=== PATIENT | female | born 1950 | race Caucasian/White ===

== ENCOUNTER 2020-06-26 09:23 | Outpatient (CLI) | payer BC, OTHER, SELFPAY ==
--- NOTE | ~2020-06-26 | MM_ITS ---
EXAMINATION: MM screening ruby BI w harry HISTORY: Screening mammogram TECHNIQUE: Craniocaudal and mediolateral oblique 3-D tomosynthesis images were obtained and synthetic 2-D images were generated. CAD analysis was submitted and interpreted. COMPARISON: 06/18/2019, 05/04/2018, 12/08/2016 bilateral digital screening mammogram examinations BREAST PARENCHYMAL COMPOSITION: There are scattered areas of fibroglandular density. FINDINGS: There are scattered bilateral benign calcifications. There is no evidence of suspicious mas s, calcification, or architectural distortion to suggest malignancy in either breast. There has been no suspicious interval change. IMPRESSION: 1. No mammographic evidence of malignancy. 2. Recommend routine screening mammography in one year. BI-RADS Category 2: Benign finding(s). Reviewed, dictated and finalized at location B. ERCIAL LITIGATION ASSOCIATE
== END 2020-06-26 09:24 | disposition home or self-care (01) ==
PROVIDERS: PCP Internal Medicine; Visit Provider Student in an Organized Health Care Education/Training Program
DX: Z12.31 Encounter for screening mammogram for malignant neoplasm of breast (principal)
CPT/HCPCS: 77063; 77067

== ENCOUNTER 2021-08-05 09:07 | Outpatient (CLI) | payer BC, OTHER, SELFPAY ==
--- NOTE | ~2021-08-05 | MM_ITS ---
EXAMINATION: MM screening [facility] BI w harry HISTORY: Screening mammogram TECHNIQUE: Craniocaudal and mediolateral oblique 3-D tomosynthesis images were obtained and synthetic 2-D images were generated. CAD analysis was submitted and interpreted. COMPARISON: 06/26/2020, 06/28/2019, 05/04/2018 BREAST PARENCHYMAL COMPOSITION: There are scattered areas of fibroglandular density. FINDINGS: Scattered benign-appearing calcifications are present. There is no evidence of suspicious m ass, calcification, or architectural distortion to suggest malignancy in either breast. There has bee n no suspicious interval change. IMPRESSION: 1. No mammographic evidence of malignancy. 2. Recommend routine screening mammography in one year. BI-RADS Category 2: Benign finding(s). Reviewed, dictated and finalized at location A. ITAL INSURANCE CLERK
== END 2021-08-05 09:08 | disposition home or self-care (01) ==
LOC: ANHIMG 09:11
PROVIDERS: PCP Internal Medicine; Visit Provider Student in an Organized Health Care Education/Training Program
DX: Z12.31 Encounter for screening mammogram for malignant neoplasm of breast (principal)
CPT/HCPCS: 77063; 77067

== ENCOUNTER 2022-08-11 11:29 | Outpatient (CLI) | payer BC, OTHER, SELFPAY ==
--- NOTE | ~2022-08-11 | MM_ITS ---
EXAMINATION: MM screening ruby BI w harry HISTORY: Screening TECHNIQUE: Craniocaudal and mediolateral oblique 3-D tomosynthesis images were obtained and synthetic 2-D images were generated. CAD analysis was submitted and interpreted. COMPARISON: Comparison to multiple prior studies sequentially, with oldest reviewed study dated 11/30. BREAST PARENCHYMAL COMPOSITION: Breast composed of scattered areas of fibroglandular density FINDINGS: There is no evidence of suspicious mass, calcification, or architectural distortion to sugg est malignancy in either breast. There has been no suspicious interval change. IMPRESSION: 1. No mammographic evidence of malignancy. 2. Recommend routine screening mammography in one year. BI-RADS Category 1: Negative Reviewed, dictated and finalized at location A. P MACHINE SERVICER
== END 2022-08-11 11:30 | disposition home or self-care (01) ==
PROVIDERS: PCP Registered Nurse; Visit Provider Internal Medicine
DX: Z12.31 Encounter for screening mammogram for malignant neoplasm of breast (principal)
CPT/HCPCS: 77063; 77067

== ENCOUNTER 2023-02-23 01:44 | Day surgery (SDC) | payer BC, OTHER, SELFPAY ==
[2023-02-09 13:15] VITALS: BMI 32.3
[2023-02-23 06:21] VITALS: BP 157/73; PULSE 63; RESP 20; TEMP 35.9; O2SAT 99
[2023-02-23] MEDS: LACTATED RINGERS 1,000 ML 150 ML IV CONT (06:33)
--- NOTE | 2023-02-23 07:16 | WPDANESEPPF ---
Anes - Initial Pre Proc Eval Procedure: Operation Date: 02/23/23 07:30 Proposed Procedures p Colonoscopy - Kendall Santana MD Date/Time: 02/23/23 07:16 Surgeon: Kendall Santana MD Pre Op Diagnosis: Noninfective gastroenteritis and colitis, unspecif Patient Data Age: 72 Gender: F Height: 1.52 m Weight: 74 kg Last Vital Signs Temp 35.9 C L 02/23/23 06:21 Pulse 63 02/23/23 06:21 Resp 20 02/23/23 06:21 BP 157/73 H 02/23/23 06:21 Pulse Ox 99 02/23/23 06:21 O2 Del Method Room Air 02/23/23 06:21 Allergies Allergy/AdvReac Type Severity Reaction Status Date / Time No Known Allergies Allergy Verified 02/23/23 06:18 Home Medications Medication Instructions Recorded Confirmed Type aspirin 81 mg tablet,delayed 81 mg PO DAILY 06/21/19 02/09/23 History release (Adult Low Dose Aspirin) cholecalciferol (vitamin D3) 100 4,000 unit PO DAILY 06/21/19 02/09/23 History mcg (4,000 unit) capsule escitalopram oxalate 20 mg tablet 10 mg PO DAILY 06/21/19 02/09/23 History ferrous sulfate-vitamin C 39 mg-75 1 tablet PO DAILY 06/21/19 02/09/23 History mg tablet hydrocodone 7.5 mg-acetaminophen 1 tablet PO Q6H PRN Pain 06/21/19 02/09/23 History 325 mg tablet metoprolol tartrate 25 mg tablet 12.5 mg PO DAILY 06/21/19 02/09/23 History multivit,Ca,ljki-GO-emujfzex-lutn 1 tablet PO DAILY 06/21/19 02/09/23 History 18 mg-500 mcg-300 mcg-250 mcg tablet (Complete Multi) atorvastatin 10 mg tablet 10 mg PO DAILY 09/15/21 02/09/23 History diclofenac sodium 75 mg 75 mg PO BID 09/15/21 02/09/23 History tablet,delayed release escitalopram oxalate 20 mg tablet 20 mg PO DAILY 02/09/23 02/09/23 History Patient hx anesthesia problems: none Family hx anesthesia problems: none Results Review: All pre-operative results and documents have been reviewed as part of the pre-operative evaluation. PMFSH Past Medical History Medical History Anemia Anxiety Chronic diarrhea Depression DVT (deep venous thrombosis) Elevated lipids H/O induced 1972 H/O vaginal delivery x2 1977, 1973 Hematochezia HTN (hypertension) Obesity (BMI 30.0-34.9) Paroxysmal A-fib Plantar fasciitis Thyroid disease Surgical History Surgical History H/O dilation and curettage H/O lateral meniscus repair of left knee 2010 H/O lateral meniscus repair of right knee 2010 H/O removal of cyst Cyst on 1955 H/O total hysterectomy with removal of both tubes and ovaries 1994 History of bilateral carpal tunnel release 2013 History of bilateral tubal ligation History of cryosurgery Cervical History of endometrial ablation History of gastric surgery 2017 History of lumbar surgery Lower, 2000 History of repair of hiatal hernia 02/2019 History of repair of right rotator cuff Hx of appendectomy 1968 [place] teeth removed Family History Family History Mother Diabetes mellitus Father Family history of primary malignant neoplasm of liver Social History Social History Smoking status: Never smoker Second hand tobacco smoke exposure: No Smoking end date: 07/11/05 Alcohol intake: never Substance use: never Substance use type: does not use Lack of Transportation: No Lack of Food: Never True Current Housing: I Have Housing Concerned About Future Housing: No Difficulty Paying Gas/Electric Bills: No Difficulty Paying for Meds: No Currently Unemployed: No Education: Associate Degree Difficulty w/ Childcare or Family Care: No Living arrangements: other Additional living arrangements comments: With Occupation/Education: retired Gender identity (if verbalized by the patient): Female Sexual Orientation (i
--- NOTE | 2023-02-23 07:25 | PM.HPGS ---
History of Present Illness History of Present Illness Consent: Risks, benefits, and alternatives have been discussed and questions answered. Patient agrees to proceed with procedure. Chief complaint: Noninfective gastroenteritis and colitis, unspecif Narrative: Liz Angelo is a 72 year old female diarrhea for almost a year, stool samples negative, last colonoscopy 9 years ago Review of Systems Constitutional: Constitutional: Denies headache(s) and Denies weakness Eyes: Eyes: Denies blurry vision ENT: Reports Normal hearing present, Denies headache(s) and Denies neck pain Cardiovascular: Cardiovascular: Denies chest pain and Denies dyspnea Respiratory: Respiratory: Denies dyspnea Gastrointestinal: Gastrointestinal: Reports no additional gastrointestinal complaints Genitourinary: Genitourinary: Denies dysuria Musculoskeletal: Musculoskeletal: Denies neck pain Integumentary/Breasts: Skin/Breast: Denies dry skin Neurologic: Reports Normal hearing present, Denies headache(s) and Denies weakness Psychiatric: Psychiatric: Denies anxiety Endocrine: Endocrine: Denies change in body appearance Hematologic/Lymphatic: Hematologic/Lymphatic: Denies easy bleeding Allergic/Immunologic: Allergic/Immunologic: Denies urticaria PMFSH Past Medical History Medical History Anemia Anxiety Chronic diarrhea Depression DVT (deep venous thrombosis) Elevated lipids H/O induced 1972 H/O vaginal delivery x2 1977, 1973 Hematochezia HTN (hypertension) Obesity (BMI 30.0-34.9) Paroxysmal A-fib Plantar fasciitis Thyroid disease Surgical History Surgical History H/O dilation and curettage H/O lateral meniscus repair of left knee 2010 H/O lateral meniscus repair of right knee 2010 H/O removal of cyst Cyst on 1955 H/O total hysterectomy with removal of both tubes and ovaries 1994 History of bilateral carpal tunnel release 2013 History of bilateral tubal ligation History of cryosurgery Cervical History of endometrial ablation History of gastric surgery 2017 History of lumbar surgery Lower, 2000 History of repair of hiatal hernia 02/2019 History of repair of right rotator cuff Hx of appendectomy 1968 [place] teeth removed Family History Family History Mother Diabetes mellitus Father Family history of primary malignant neoplasm of liver Social History Social History Smoking status: Never smoker Second hand tobacco smoke exposure: No Smoking end date: 07/11/05 Alcohol intake: never Substance use: never Substance use type: does not use Lack of Transportation: No Lack of Food: Never True Current Housing: I Have Housing Concerned About Future Housing: No Difficulty Paying Gas/Electric Bills: No Difficulty Paying for Meds: No Currently Unemployed: No Education: Associate Degree Difficulty w/ Childcare or Family Care: No Living arrangements: other Additional living arrangements comments: With Occupation/Education: retired Gender identity (if verbalized by the patient): Female Sexual Orientation (if Verbalized by the Patient): Straight or Heterosexual Spiritual care concerns: No Meds Home Medications and Allergies Home Medications Medication Instructions Recorded Confirmed Type aspirin 81 mg tablet,delayed 81 mg PO DAILY 06/21/19 02/09/23 History release (Adult Low Dose Aspirin) cholecalciferol (vitamin D3) 100 4,000 unit PO DAILY 06/21/19 02/09/23 History mcg (4,000 unit) capsule escitalopram oxalate 20 mg tablet 10 mg PO DAILY 06/21/19 02/09/23 History ferrous sulfate-vitamin C 39 mg-75 1 tablet PO DAILY 06/21/19 02/09/23 History mg tablet hydrocodone 7.5 mg-acetaminophen 1 tablet PO Q
[2023-02-23 07:41] VITALS: BP 136/70; PULSE 56; RESP 15; O2SAT 97
[2023-02-23 07:51] VITALS: BP 127/68; PULSE 55; RESP 14; O2SAT 98
[2023-02-23 08:01] VITALS: BP 112/79; PULSE 52; RESP 16; O2SAT 100
== END 2023-02-23 08:05 | disposition home or self-care (01) ==
PROVIDERS: PCP Internal Medicine; Visit Provider Internal Medicine Gastroenterology
PROC: 0DJD8ZZ Inspection of Lower Intestinal Tract, Via Natural or Artificial Opening Endoscopic (ICD-10-PCS; CPT 45378; principal; 2023-02-23 07:30)
DX: Z12.11 Encounter for screening for malignant neoplasm of colon (principal); R19.7 Diarrhea, unspecified; K64.8 Other hemorrhoids; I48.0 Paroxysmal atrial fibrillation; D64.9 Anemia, unspecified; F32.A Depression, unspecified; F41.9 Anxiety disorder, unspecified; E66.9 Obesity, unspecified; Z68.31 Body mass index [BMI] 31.0-31.9, adult; Z79.82 Long term (current) use of aspirin
CPT/HCPCS: 45380; 88305; J2704; J7120

== ENCOUNTER 2023-11-09 13:20 | Outpatient (CLI) | payer MEDICARE, BC, SELFPAY ==
--- NOTE | 2023-11-09 13:30 | ECG_ITS ---
SEE SCANNED COPY FOR CONFIRMED REPORT. MTDD
[2023-11-09 13:48] LABS: Hematocrit 35.8 % (37.0-47.0); Hemoglobin 11.9 g/dL (12.0-15.0)
== END 2023-11-09 13:21 | disposition home or self-care (01) ==
LOC: ANHSURGERY 13:29
PROVIDERS: Anesthesiology; PCP Internal Medicine; Visit Provider Urology
DX: D64.9 Anemia, unspecified (principal); I10 Essential (primary) hypertension; Z01.818 Encounter for other preprocedural examination
CPT/HCPCS: 36415; 85014; 85018; 93005

== ENCOUNTER 2023-11-11 01:10 | Day surgery (SDC) | payer MEDICARE, BC, SELFPAY ==
--- NOTE | 2023-11-06 15:02 | PM.IMHP ---
H&P: HPI History of Present Illness Date/Time: 11/06/23 15:02 Chief Complaint: pelvic organ prolapse Narrative: 9-year-old with symptomatic rectocele who desires correction Review of Systems Review of Systems: All systems reviewed & are unremarkable except as noted in HPI and below PMFSH Past Medical History Medical History (Updated 11/06/23 @ 15:03 by Nilton De Dios MD) Anemia Anxiety Chronic diarrhea Cystocele Cystocele and rectocele with incomplete uterovaginal prolapse Depression DVT (deep venous thrombosis) Elevated lipids H/O induced 1972 H/O vaginal delivery x2 1973 Hematochezia HTN (hypertension) Obesity (BMI 30.0-34.9) Paroxysmal A-fib Plantar fasciitis Thyroid disease Surgical History Surgical History H/O dilation and curettage H/O lateral meniscus repair of left knee 2010 H/O lateral meniscus repair of right knee 2010 H/O removal of cyst Cyst on 1955 H/O total hysterectomy with removal of both tubes and ovaries 1994 History of bilateral carpal tunnel release 2013 History of bilateral tubal ligation History of cryosurgery Cervical History of endometrial ablation History of gastric surgery 2017 History of lumbar surgery Lower, 2000 History of repair of hiatal hernia 02/2019 History of repair of right rotator cuff Hx of appendectomy 1968 [place] teeth removed Family History Family History Mother Diabetes mellitus Father Family history of primary malignant neoplasm of liver Social History Social History Smoking status: Never smoker Second hand tobacco smoke exposure: No Smoking end date: 07/11/05 Alcohol intake: never Substance use: never Substance use type: does not use Lack of Transportation: No Lack of Food: Never True Current Housing: I Have Housing Concerned About Future Housing: No Difficulty Paying Gas/Electric Bills: No Difficulty Paying for Meds: No Currently Unemployed: No Education: Associate Degree Difficulty w/ Childcare or Family Care: No Living arrangements: other Additional living arrangements comments: With Occupation/Education: retired Gender identity (if verbalized by the patient): Female Sexual Orientation (if Verbalized by the Patient): Straight or Heterosexual Spiritual care concerns: No Meds Home Medications and Allergies Home Medications Medication Instructions Recorded Confirmed Type aspirin 81 mg tablet,delayed 81 mg PO DAILY 06/21/19 03/01/23 History release (Adult Low Dose Aspirin) cholecalciferol (vitamin D3) 100 4,000 unit PO DAILY 06/21/19 03/01/23 History mcg (4,000 unit) capsule escitalopram oxalate 20 mg tablet 10 mg PO DAILY 06/21/19 03/01/23 History ferrous sulfate-vitamin C 39 mg-75 1 tablet PO DAILY 06/21/19 03/01/23 History mg tablet hydrocodone 7.5 mg-acetaminophen 1 tablet PO Q6H PRN Pain 06/21/19 03/01/23 History 325 mg tablet metoprolol tartrate 25 mg tablet 12.5 mg PO DAILY 06/21/19 03/01/23 History multivit,Ca,pypu-XG-ctjkdjoq-lutn 1 tablet PO DAILY 06/21/19 03/01/23 History 18 mg-500 mcg-300 mcg-250 mcg tablet (Complete Multi) atorvastatin 10 mg tablet 10 mg PO DAILY 09/15/21 03/01/23 History diclofenac sodium 75 mg 75 mg PO BID 09/15/21 03/01/23 History tablet,delayed release escitalopram oxalate 20 mg tablet 20 mg PO DAILY 02/09/23 03/01/23 History biotin 1 mg capsule 1 mg PO DAILY 03/01/23 03/01/23 History melatonin 10 mg capsule 10 mg PO QHS 03/01/23 03/01/23 History Allergies Allergy/AdvReac Type Severity Reaction Status Date / Time No Known Allergies Allergy Verified 03/31/23 11:34 Exam Narrative: no acute distress alert and oriented x3 rectocele to the introitus Assessment and Plan Assessment and plan (1)
[2023-11-08 12:05] VITALS: BMI 33.0
--- NOTE | 2023-11-08 12:49 | PC.NURSE ---
Report to the Outpatient Waiting Room, entrance under the green pavilion located off [address], at time __7:45AM on date __11/11/23 . Planned Procedure Time: __9:45AM . Time changes happen often and if your time is changed the preop area will call you the afternoon before. - You and your visitor will be asked to self-screen and do not enter if you have any COVID symptoms. - A mask is optional within the hospital at this time. Patients may have clear liquids (water, carbonated beverages, clear teas, apple juice) until 3 hours prior to surgery with a maximum of 20 ounces. - No food from midnight until time of surgery. Take the following medications with a SIP of water the morning of surgery: ___ESCITALOPRAM, METOPROLOL. HYDROCODONE NEEDED FOR PAIN. DO NOT STOP ANY OF YOUR OTHER PRESCRIPTION MEDICATIONS PRIOR TO SURGERY ?EXCEPT THE FOLLOWING Medications to discontinue per physician ____HOLD ASPIRIN FOR 7 DAYS PRE-OP PRE DR SHERMAN- LAST DOSE 11/03/23. HOLD ALL VITAMINS/SUPPLEMENTS 3 DAYS PRE-OP PER ANESTHESIA- LAST DOSE 11/07/23 Please no make-up, nail belarusian, hairspray, perfume, deodorant, or body powder the day of surgery. No jewelry (including any body piercings) or valuables the day of surgery, leave them at home. Please take a shower or bath the night before, or the morning of, surgery with an antibacterial soap. Wear comfortable, loose fitting clothing. - Jewelry must be removed prior to entering the operating room. Rings and piercings that are not removed may be cut off. - The hospital will not accept responsibility for valuables. - Please leave all valuables, including medications, at home the day of surgery. If you are going home after surgery, a licensed power screwdriver operator must drive you home. - NO public transportation without another adult if you receive anesthesia. - We recommend that an adult stay with you for 24 hours following discharge. - We also recommend that you do not drive, make important decision, drink alcoholic beverages, or take any drugs that were not prescribed by your health care provider for at least 24 hours after your discharge time. Follow any additional instructions given to you from your surgeon. If you or anyone in your household have experienced Covid symptoms in the past week, please notify your surgeon or the nurse liaison at the phone number below for possible testing. Telephone instructions given to ___PATIENT & HUSBAND and asked if any additional questions and then verbalized understanding. Patient advised to call surgeon office or pre surgery nurse liaison [phone] if any additional questions.
[2023-11-11] VITALS (12 sets, daily range): BP systolic 126–169; BP diastolic 65–94; PULSE 55–69; RESP 12–16; TEMP 36.1–36.2; O2SAT 88–99
--- NOTE | 2023-11-11 04:44 | WPDHPUPDATE1 ---
History and Physical Update Update Date/Time: 11/11/23 04:44 History and Physical has been reviewed, including an updated exam of the patient. There are NO changes in the patient's condition. Risks, benefits, and alternatives have been discussed and questions answered. Patient agrees to proceed with procedure.
--- NOTE | 2023-11-11 08:25 | WPDANESEPPF ---
Anes - Initial Pre Proc Eval Procedure: Operation Date: 11/11/23 09:45 Proposed Procedures p Rectocele Repair - Nilton De Dios MD Date/Time: 11/11/23 08:25 Surgeon: Nilton De Dios MD Pre Op Diagnosis: rectocele Patient Data Age: 73 Gender: F Height: 1.54 m Weight: 78 kg Allergies Allergy/AdvReac Type Severity Reaction Status Date / Time No Known Allergies Allergy Verified 11/08/23 11:59 Home Medications Medication Instructions Recorded Confirmed Type aspirin 81 mg tablet,delayed 81 mg PO DAILY 06/21/19 11/08/23 History release (Adult Low Dose Aspirin) cholecalciferol (vitamin D3) 100 4,000 unit PO DAILY 06/21/19 11/08/23 History mcg (4,000 unit) capsule ferrous sulfate-vitamin C 39 mg-75 1 tablet PO DAILY 06/21/19 11/08/23 History mg tablet hydrocodone 7.5 mg-acetaminophen 1 tablet PO Q6H PRN Pain 06/21/19 11/08/23 History 325 mg tablet metoprolol tartrate 25 mg tablet 25 mg PO BID 06/21/19 11/08/23 History multivit,Ca,uoou-JA-maivazik-lutn 1 tablet PO DAILY 06/21/19 11/08/23 History 18 mg-500 mcg-300 mcg-250 mcg tablet (Complete Multi) atorvastatin 10 mg tablet 10 mg PO DAILY 09/15/21 11/08/23 History diclofenac sodium 75 mg 75 mg PO BID 09/15/21 11/08/23 History tablet,delayed release escitalopram oxalate 20 mg tablet 20 mg PO DAILY 02/09/23 11/08/23 History biotin 1 mg capsule 1 mg PO DAILY 03/01/23 11/08/23 History melatonin 10 mg capsule 10 mg PO QHS 03/01/23 11/08/23 History escitalopram oxalate 10 mg tablet 10 mg PO QAM 11/08/23 11/08/23 History Patient hx anesthesia problems: none Family hx anesthesia problems: none Results Review: All pre-operative results and documents have been reviewed as part of the pre-operative evaluation. [facility] Past Medical History Medical History Anemia Anxiety Chronic diarrhea Cystocele Cystocele and rectocele with incomplete uterovaginal prolapse Depression DVT (deep venous thrombosis) Elevated lipids H/O induced 1972 H/O vaginal delivery x2 1973 Hematochezia HTN (hypertension) Obesity (BMI 30.0-34.9) Paroxysmal A-fib Plantar fasciitis Thyroid disease Surgical History Surgical History H/O dilation and curettage H/O lateral meniscus repair of left knee 2010 H/O lateral meniscus repair of right knee 2010 H/O removal of cyst Cyst on 1955 H/O total hysterectomy with removal of both tubes and ovaries 1994 History of bilateral carpal tunnel release 2013 History of bilateral tubal ligation History of cryosurgery Cervical History of endometrial ablation History of gastric surgery 2017 History of lumbar surgery Lower, 2000 History of repair of hiatal hernia 02/2019 History of repair of right rotator cuff Hx of appendectomy 1968 [place] teeth removed Family History Family History Mother Diabetes mellitus Father Family history of primary malignant neoplasm of liver Social History Social History Smoking packs per day: 1.5 Smoking cigarettes per day: 30.0 Years smoked: 30 Smoking pack-years: 45.00 Smoking status: Former smoker Tobacco type: cigarettes Second hand tobacco smoke exposure: No Smoking end date: 01/08/06 Alcohol intake: never Substance use: never Substance use type: does not use Lack of Transportation: No Lack of Food: Never True Current Housing: I Have Housing Concerned About Future Housing: No Difficulty Paying Gas/Electric Bills: No Difficulty Paying for Meds: No Currently Unemployed: No Education: Associate Degree Difficulty w/ Childcare or Family Care: No Living arrangements: with family Additional living arrangements comments: HUSB Occupation/Education: retired Gender identity (if verbaliz
[2023-11-11] MEDS: LACTATED RINGERS 1,000 ML 30 ML IV CONT ×2 (08:41→10:23)
[2023-11-11] MEDS: ceFAZolin 2 GM/D5W 50 ML 2 GM/50 ML BAG IVPB (08:54)
[2023-11-11] MEDS: BUPIVACAINE/EPINEPHRINE 0.5% 30 ML VIAL 20 ML INFILTRATE (09:16)
--- NOTE | 2023-11-11 11:20 | P.OP_ITS ---
Procedure Note - Detailed Date of Procedure 11/11/23 Pre-op Diagnosis rectocele female perineal laxity Post-op Diagnosis Same Procedure Performed rectocele repair, perineorrhaphy Surgeon Nilton De Dios MD Emergency Response Officer [facility] Anesthesia General Indications this is a woman with a symptomatic rectocele who desires operative intervention. She understands risks of bleeding, infection, damage to the bowel or urinary tract, recurrence, dyspareunia, lack of cure of prolapse. She agrees to proceed Findings large rectocele. Female perineal laxity Description of Procedure she was correctly identified. Informed consent obtained. She is from the operating room. She was given general anesthesia. She was placed in dorsal lithotomy position. She was prepped and draped sterile fashion. Time-out performed. Placed a Morgan catheter. I placed a Vista retractor. She had a rectocele to the level of the introitus without significant loss of apical support. Tissues were quite thin due to atrophic vaginitis. I grasped the rectocele with Allis clamps. I infiltrated subcutaneous tissues with local mixed with epinephrine. I made a midline vaginal incision. I dissected the mucosa off the underlying fascial structures. I did this laterally and then back to the apex. I took great care not to injure the rectum or underlying bowel. I did not enter the peritoneum. I next performed a standard plication type rectocele repair. I started at the apex and took this down distally. I did interrupted 0 Vicryl sutures. I took great care not to injure the bowel. There was excellent reduction of the rectocele. I trimmed excess vaginal mucosa. I closed the vaginal mucosa with a running 2-0 Vicryl suture she had quite a bit of perineal laxity. I anesthetized a coreen-shaped area of skin on the perineum. I removed this area of skin. I performed a perineorrhaphy with interrupted 0 Vicryl sutures. I used a 2-0 Vicryl to close mucosa to mucosa there was excellent prolapse reduction as well as perineal support. Hemostasis adequate. Rectal exam was normal. She was awakened transferred to PACU in stable condition Implants none Estimated Blood Loss 30 Packing No Pathology None sent Complications No immediate complications Condition Stable Disposition PACU
== END 2023-11-11 12:20 | disposition home or self-care (01) ==
PROVIDERS: PCP Internal Medicine; Visit Provider Urology
PROC: 0JQC0ZZ Repair Pelvic Region Subcutaneous Tissue and Fascia, Open Approach (ICD-10-PCS; CPT 45560; principal; 2023-11-11 09:45)
DX: N81.6 Rectocele (principal); D64.9 Anemia, unspecified; I48.0 Paroxysmal atrial fibrillation; F41.9 Anxiety disorder, unspecified; F32.A Depression, unspecified; I10 Essential (primary) hypertension; Z86.718 Personal history of other venous thrombosis and embolism; Z79.82 Long term (current) use of aspirin; E66.9 Obesity, unspecified; Z68.32 Body mass index [BMI] 32.0-32.9, adult; Z87.891 Personal history of nicotine dependence
CPT/HCPCS: 57250; 36415; 85014; 85018; 93005; A9270; J0330; J0690; J2250; J2405; J2704; J3010; J7120